=== PATIENT | female | born 1945 | race Caucasian/White ===

== ENCOUNTER 2017-05-05 11:34 | Inpatient (IN) ==
--- NOTE | 2017-05-04 16:29 | Discharge Summary ---
<Chetna Reed E - Last Filed: 05/04/17 16:26> Date of Encounter: 05/04/17 - Discharge Diagnosis (1) Osteoarthritis of right knee Priority: Primary Status: Chronic Qualifiers: Osteoarthritis type: unspecified Qualified Code(s): M17.11 - Unilateral primary osteoarthritis, right knee (2) HTN (hypertension) Priority: Secondary Status: Chronic Qualifiers: Hypertension type: unspecified Qualified Code(s): I10 - Essential (primary ) hypertension (3) HLD (hyperlipidemia) Priority: Secondary Status: Chronic Qualifiers: Hyperlipidemia type: unspecified Qualified Code(s): E78.5 - Hyperlipidemia , unspecified - Discharge Medications Home Medications: Aspirin Enteric Coated [Aspirin EC] 325 mg PO DAILY 21 Days #21 tablet. [Rx] OxyCODONE Immed Rel [Roxicodone 5 MG] 5 mg PO Q6HR PRN 7 Days #28 tablet [Rx] Aspirin [Lo-Dose Aspirin EC] 81 mg PO DAILY 05/05/17 [History] Celecoxib [Celebrex] 200 mg PO DAILY 05/05/17 [History] Cholecalciferol (D-3) [Vitamin D] 1,000 unit PO DAILY 05/05/17 [History] Lifitegrast [Xiidra] 1 drop OP BID 05/05/17 [History] Lisinopril [Zestril] 5 mg PO HS 05/05/17 [History] Lisinopril [Zestril] 10 mg PO HS 05/05/17 [History] Lisinopril [Zestril] 20 mg PO QAM 05/05/17 [History] Magnesium l-Lactate [Mag-Tab Sr] 84 mg PO DAILY 05/05/17 [History] Nortriptyline [Pamelor] 25 mg PO HS 05/05/17 [History] Pantoprazole Sodium [Protonix] 40 mg PO DAILY 05/05/17 [History] Potassium Gluconate 99 mg PO DAILY 05/05/17 [History] Simvastatin [Zocor] 20 mg PO HS 05/05/17 [History] Tramadol HCl [Ultram] 50 mg PO TID PRN 05/05/17 [History] Zolpidem [Ambien] 5 mg PO HS PRN 05/05/17 [History] amLODIPine [Norvasc] 5 mg PO DAILY #0 05/05/17 [Rx] Allergies/Adverse Reactions: 3 Allergy/AdvReac Type Severity Reaction Status Date / Time No Known Allergies Allergy Verified 11/04/16 12:39 Primary care physician: Kala Marquez - Patient Status Disposition: Home, Self-Care Condition: Good - Discharge Instructions Follow Up With: Chetna Reed PAC [Physician Board Turner] - 05/15/17 9:45 am (& also, May 21, 2017 at 10:15 AM) Jack Milner MD [Partnered Physician] - 06/04/17 5:15 pm Additional Instructions: Discharge Instructions: Total Knee Replacement Please call [facility] ([phone]), your Primary Care Physician, or report to the Emergency Room if you have any of the following symptoms: Nausea, vomiting, fever greater that 101.5, swelling, chest pain, shortness of breath, increased pain/redness/drainage/odor for your incision site, numbness/ tingling, or any other concerning symptoms. ACTIVITY: Weight-bearing as tolerated. You may progress off support (crutches or walker) as tolerated. MEDICATIONS: Upon discharge resume your home medications. Take all the medications as prescribed. Take a stool softener if taking narcotic pain medications. Stool softeners are only effective if you drink enough fluids. Drink 6-8 glass of water or fluids a day, unless this is not allowed for another health problem. Despite using stool softeners, if you haven't had a bowel movement in 3 days, please switch to a gentle laxative. Gentle laxatives are sold over the counter. You should have a bowel movement within 24 hours, if not call the office. You will be discharged from the hospital with a prescription for pain medication. You are encouraged to decrease the use of narcotic pain medication as tolerated. Should you require a refill, please call the office. [facility] prescribes narcotic pain medication for only 4-6 weeks after surgery. If you require pain medication beyond this time period, you may be referred to your Primary Care Physician or to the Pain Clinic for further evaluation. Plan ahead for refills on pain medication as many narcotics either need to be picked up at the office or mailed. It is best to call 48-72 hours in advance of needing a prescription refill so you don't run out of medication. To help control the post-operative pain, you may take Tylenol as prescribed on the bottle in addition to the pain medication. ANTICOAGULATION (blood thinners): Continue your Aspirin, Lovenox or Coumadin as prescribed to help prevent a blood clot in the leg or in the lungs. Common symptoms of blood clot in the legs include: localized pain, swelling, calf tenderness, redness or discoloration of the skin. Blood clot in the lung symptoms include: shortness of breath, rapid pulse, sweating, and chest pain that worsens with deep breathing, coughing up blood, lightheadedness, feelings of anxiety. If you experience any of these symptoms notify your physician immediately, go to the emergency room, or if having trouble breathing, call 911. WOUND CARE: Leave the dressing on for 7 to 10 days. You may change the dressing if it becomes saturated greater than 50%. Do not get the dressing wet at anytime. Wash your hands with antibacterial soap, rinse and dry prior to any wound care. If you have santos the visiting nurse or rehab facility can remove the stapes 10-14 days after surgery and place steri-strips across the wound. Leave the steri-strips in place until they fall off on their won. You may let water from the shower run on top of the steri-strips. If you do not have a visiting nurse or rehab facility, you will need to return to the office at 10-14 days for the santos to be removed. If you have itching or redness around the dressing call the office. FOLLOW-UP: Please follow up with your surgeon in the orthopedic clinic in 4 weeks from the day of surgery. If you have santos that need to be removed, you will need to come back to the office in 10-14 days from the day of surgery. - Hospital Course Hospital course: Ms. Marquez is a 71 year old female - Time Spent with Patient Total time spent providing and/or coordinating discharge services: <Jack Milner - Last Filed: 05/08/17 07:49> Date of Encounter: 05/08/17 Time of Encounter: 07:48 - Discharge Diagnosis (1) Status post total right knee replacement Priority: Primary Status: Acute (2) HTN (hypertension) Priority: Secondary Status: Chronic Qualifiers: Hypertension type: unspecified Qualified Code(s): I10 - Essential (primary ) hypertension (3) HLD (hyperlipidemia) Priority: Secondary Status: Chronic Qualifiers: Hyperlipidemia type: unspecified Qualified Code(s): E78.5 - Hyperlipidemia , unspecified (4) Osteoarthritis of right knee Priority: Primary Status: Chronic Qualifiers: Osteoarthritis type: unspecified Qualified Code(s): M17.11 - Unilateral primary osteoarthritis, right knee Primary care physician: Kala Marquez - Patient Status Functional capacity at discharge: uses cane/walker Overall status at discharge: patient is progressing back to baseline - Hospital Course Hospital course: Ms. Marquez is a 71 year old female Status post right total knee replacement The patient had an uneventful postoperative course. They received antibiotics and physical therapy and were discharged in stable condition. There will follow -up in the office in 2 weeks. - Time Spent with Patient Total time spent providing and/or coordinating discharge services:
--- NOTE | 2017-05-05 12:34 | History & Physical Report ---
Date of Encounter: 05/05/17 Time of Encounter: 12:34 24 Hour HP Update - Instructions Instructions: If the History and Physical is less than 30 days old and was completed prior to A.M. admission and or procedure and has NOT been updated on calendar day of procedure please complete this update prior to performing procedure. - Update Patient reports changes in Medical Condition: No Changes in examination, assessment, or condition: No Changes in Medication: No Preop tests/diagnostics Reviewed: Yes Surgery Remains Indicated: Yes Consent for Planned Operative Procedure(s) Verified: Yes - Pre-Operative Checklist Preoperative Checklist Indicated: No Prophylactic Antibiotic Ordered: Yes Is VTE Prophylaxis Indicated?: Yes
[2017-05-05] MEDS ORDERED: CeFAZolin Syr 2,000MG/20 ML 2,000 MG/20 ML SYRINGE IVPB ONE (12:36)
[2017-05-05] MEDS ORDERED: Famotidine 20 MG/2 ML VIAL IVP ONE (12:40)
[2017-05-05] MEDS ORDERED: Pregabalin 75 MG CAPSULE PO ONE (12:41)
[2017-05-05] MEDS ORDERED: Acetaminophen IV 1,000 MG/100 ML INFUS..BTL IVPB ONE (12:41)
[2017-05-05] MEDS ORDERED: Plasma-Lyte A (PH 7.4) 1,000 ML IVC SCH (12:45)
--- NOTE | 2017-05-05 12:46 | Anesthesia Evaluation PreOp ---
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 [Rx] OxyCODONE Immed Rel [Roxicodone 5 MG] 5 mg PO Q6HR PRN 7 Days #28 tablet [Rx] 3 Allergy/AdvReac Type Severity Reaction Status Date / Time No Known Allergies Allergy Verified 11/04/16 12:39 - Meds/Allergy Pre-op Review Medications Reviewed: Yes Allergies Reviewed: Yes Beta Blockers on Current Med List: No Anesthesia Results - Labs Laboratory Tests 04/22/17 04/22/17 04/22/17 11:40 11:40 11:40 Hgb 15.1 Hct 45.7 H Plt Count 271 PT 11.1 INR 1.0 APTT 27.1 Sodium 137 Potassium 3.9 BUN 20 Creatinine 0.97 - Imaging EKG: report reviewed (SR) Additional studies: LVEF 70% Anesthesia Exam O2 Sat Height 1.65 m Weight 80.739 kg O2 Sat by Pulse Oximetry 97 Vital Signs Temp Pulse Resp BP Pulse Ox 98.1 F 101 18 152/83 97 05/05/17 12:22 05/05/17 12:22 05/05/17 12:22 05/05/17 12:22 05/05/17 12:22 Height: 5'5 Weight: 178 lbs NPO (# of Hours): MN Pain Scale: 0 - HEENT Pupil (Motor): Pupils equal, EOMI Mallampati: II Teeth: Normal Oral Opening: Greater than 3 - METER REPAIRER HELPER LOC: Oriented METER REPAIRER HELPER Motor: Normal RUE, Normal LUE, Normal RLE, Normal LLE, Normal Face METER REPAIRER HELPER Sensory: Normal: RUE, LUE, RLE, LLE, Face - Cardiac Rhythm: Regular Murmur: None JVD: No Carotid Bruit: No - Pulmonary Breath Sounds: bilateral Clear Respiratory Effort: Symmetrical Anesthesia Assess/Plan ASA Score: 2 Modified Isaiah Scale for Level of Consciousness: Cooperative, oriented, and tranquil Anesthetic Plan: Regional, MAC Monitoring Plan: Standard Monitors Recovery Plan: PACU (Discussed SAB with Adductor Canal Block MAC, possible GA, agrees to proceed)
[2017-05-05] MEDS ORDERED: Lidocaine -MPF 2% 2 ML VIAL ONE (13:13)
[2017-05-05] MEDS ORDERED: *HR* FentaNYL (PF) 100 MCG/2 ML VIAL ONE (13:13)
[2017-05-05] MEDS ORDERED: EPHEDrine 50 MG/ML VIAL ONE (13:13)
[2017-05-05] MEDS ORDERED: Propofol 500 MG/50 ML INFUS..BTL ONE (13:13)
[2017-05-05] MEDS ORDERED: *HR* Midazolam HCl 2 MG/2 ML VIAL ONE (13:14)
[2017-05-05] MEDS ORDERED: Ethanol\\Acetic Acid\\Na Ace\\Ben 1,000 ML IRRIG.SOLN IR ONE (14:30)
[2017-05-05] MEDS ORDERED: *HR* Ropivacaine/PF 0.5% 20 ML VIAL ONE (14:31)
--- NOTE | 2017-05-05 15:11 | Anesthesia Procedures ---
Date of Encounter: 05/05/17 Time of Encounter: 14:00 Procedures: Anesthesia - Epidural/Spinal Patient ID/Chart reviewed: Yes Patient examined: Yes Consent Obtained: Yes Supplemental Oxygen: Nasal Cannula (2) Sedation: Versed (mg): 2 Site Prep: Aseptic Technique, Sterile prep and drape, Povidone-Iodine 1% Patient position: upright Local Anesthetic: Lidocaine 1% Interspace Used: L4-L5 Blood: No CSF: Yes Paresthesia: No Spinal Needle Gauge: 25 Spinal Dose: 20 mg Marcaine isobaric Procedure: Patient sitting, midline L3-4 Patient tolerated procedure well Vitals + FHT's: Vital Signs/O2 Sat/Glucose, Most Current Temp Pulse Resp BP Pulse Ox 05/05/17 14:44 104 148/79 97 05/05/17 14:37 112 159/86 97 05/05/17 12:47 98.1 F 101 18 152/83 97 05/05/17 12:22 98.1 F 101 18 152/83 97
[2017-05-05] MEDS ORDERED: MORPHINE SUL Oral CONC 10 MG/0.5 ML ORAL.SYG SL PRN (15:32)
--- NOTE | 2017-05-05 15:42 | Orthopedic Operative Note ---
Date of procedure: 05/05/17 Pre-op diagnosis: Right knee arthritis Post-op diagnosis: same Procedure: Procedure: Right robotic-assisted Total knee replacement Estimated blood loss: 200 cc Hardware: Metal and polyethylene replacement. [place] Femur: 3 Tibia: 3 PS insert: 13 Patella: 36 Exam Under anesthesia: Hyperextension 3 degrees 4 degrees varus as calculated by the robot full flexion and no instability Procedural Notes: Grade 4 arthritic changes medial compartment grade 3 patellofemoral joint. Operative procedure: The patient was brought to the operating room and placed on the operating room table. After general anesthesia was administered the operative knee was examined. Findings were noted in the exam under anesthesia. The operative extremity was prepped and draped in sterile surgical fashion. The patient received IV antibiotics prior to skin incision. A standard midline incision was made centered over the patella. The incision was made through the skin and subcutaneous tissue. A medial parapatellar tendon approach was performed. Care was taken to preserve tissue along the medial aspect of the patella. And to protect the patella tendon. The deep MCL was released off the medial tibia. The infra patella fat pad was excised. The patella was everted and cut was made at the level of the insertion of the quadriceps and patella tendon. The patella was sized to a 36 the guide was seated and the lug holes are drilled. Knee was brought into flexion. Patient noted to have grade 43 changes medial compartment and grade 3 patellofemoral joint. Steinmann pins were placed in the tibia and the femur for the tibial and femoral arrays respectively. Checkpoints were also placed in the tibia and the femur for calculation purposes. The knee including the femur and the tibial registered. Osteophytes , ACL and PCL were excised at this point. Extension and flexion were assessed with a valgus stress components were adjusted on the computer to balance the knee. Femoral cuts were made first with robotic assistance, these included the anterior cut posterior cuts chamfer cuts. Tibial cut was then performed with robotic assistance as well. Bone fragments were removed, as well as the medial and lateral meniscus. The size 3 femoral guide was seated box cut was made lug holes are drilled. The size 3 tibial tray was seated and prepared with the fin cutter. Trial reduction with the 13 PS Christie revealed extension of 0 degree and 1 degree varus and full flexion. No varus valgus instability. Trial reduction revealed excellent patella tracking. All trial components were removed all bony surfaces were irrigated. The Tibia was seated followed by the femur, The Christie size 13 was seated and secured patella. Patient had similar findings for motion and stability. The knee was closed by the PA. The knee was then irrigated out with 2 L of pulse irrigation. The extensor mechanism was closed with #2 FiberWire suture and #2 PDS suture. The subcutaneous tissue was then irrigated and closed deep with #1 PDS suture superficially with 0 PDS suture and skin was closed with zip tie The patient was then placed in a sterile dressing and a postoperative brace extubated and transferred to recovery room in stable condition. Anesthesia: MAC, spinal Surgeon: Jack Milner Was there an costumer assistant present: No Estimated blood loss (cc): 200 Condition: stable Disposition: PACU
[2017-05-05] MEDS ORDERED: CeFAZolin Premix DUPLEX 2,000 MG/50 ML BAG IVPB SCH (16:55)
[2017-05-05] MEDS ORDERED: MOM Conc 10 ML UD.LIQ PO PRN (16:55)
[2017-05-05] MEDS ORDERED: Naloxone 0.4 MG/ML INJ IVP PRN (16:55)
[2017-05-05] MEDS ORDERED: Temazepam 15 MG CAPSULE PO PRN (16:55)
[2017-05-05] MEDS ORDERED: Sennosides 8.6 MG TABLET PO PRN (16:55)
[2017-05-05] MEDS ORDERED: Ondansetron 4 MG/2 ML VIAL IVP PRN (16:55)
--- NOTE | 2017-05-05 17:00 | Anesthesia Evaluation Post Op ---
Date of Encounter: 05/05/17 Time of Encounter: 16:45 - Vital Signs Vital Signs: Vital Signs/O2 Sat/Glucose, Most Current Temp Pulse Resp BP Pulse Ox 05/05/17 16:52 93 16 136/73 95 05/05/17 16:42 99.0 F 93 16 138/66 96 05/05/17 16:32 87 16 135/84 96 05/05/17 16:22 87 16 132/74 96 05/05/17 16:12 98.5 F 91 16 128/73 96 05/05/17 14:44 104 148/79 97 05/05/17 14:37 112 159/86 97 - Lungs Lungs: Clear Ascult./Percussion - Airway Airway: Non-obstructed - Cardiovascular Regular Rate - Mental Status Mental Status: Alert & Oriented, Answers Appropriately - Pain Pain Scale: 0 - Nausea Vomiting Nausea Vomiting: Not Present - Hydration Hydration: Ice chips - Discharge PostOp Status: Transfer Patient to floor
[2017-05-05 17:20] LABS: Hematocrit 42.3 % (35.3-44.9); Hemoglobin 14.1 g/dL (11.5-15.4)
[2017-05-05] MEDS ORDERED: *HR* Enoxaparin 30 MG/0.3 ML SYRINGE SQ SCH (18:00)
[2017-05-05] MEDS: *HR* Enoxaparin 30 MG/0.3 ML SYRINGE SQ SCH (18:33)
[2017-05-05] MEDS: Ringers Solution, Lactated 1,000 ML IVC SCH (20:10)
[2017-05-05] MEDS: CeFAZolin Premix DUPLEX 2,000 MG/50 ML BAG IVPB SCH (22:53)
[2017-05-06] MEDS ORDERED: *HR* OxyCODONE Immed Rel 5 MG TABLET PO PRN (03:35)
[2017-05-06] MEDS: *HR* OxyCODONE Immed Rel 5 MG TABLET PO PRN ×4 (03:43→20:21)
[2017-05-06 05:07] LABS: Hematocrit 41.1 % (35.3-44.9); Hemoglobin 13.5 g/dL (11.5-15.4)
[2017-05-06 05:20] LABS: BUN/Creatinine Ratio 22 (6-26); Blood Urea Nitrogen 17 mg/dL (8-23); Calcium 8.9 mg/dL (8.6-10.3); Carbon Dioxide 25 mEq/L (23-29); Chloride 104 mEq/L (98-107); Glucose 156 mg/dL (70-105); Osmolality,Calculated 291 (280-300); Potassium 4.1 mEq/L (3.5-5.1); Sodium 138 mEq/L (136-145); eGFR For African Americans > 60 (> 60); eGFR For Non-African Americans > 60 (> 60)
[2017-05-06] MEDS: Ringers Solution, Lactated 1,000 ML IVC SCH (05:38)
[2017-05-06] MEDS: *HR* Enoxaparin 30 MG/0.3 ML SYRINGE SQ SCH ×2 (05:53→17:54)
[2017-05-06] MEDS: CeFAZolin Premix DUPLEX 2,000 MG/50 ML BAG IVPB SCH (05:56)
--- NOTE | 2017-05-06 06:47 | Orthopedics Progress Note ---
Date of Encounter: 05/06/17 Time of Encounter: 06:47 - Assessment and Plan (1) Status post total right knee replacement Current Visit: Yes Status: Acute (2) HTN (hypertension) Current Visit: No Status: Chronic Qualifiers: Hypertension type: unspecified Qualified Code(s): I10 - Essential (primary ) hypertension (3) HLD (hyperlipidemia) Current Visit: No Status: Chronic Qualifiers: Hyperlipidemia type: unspecified Qualified Code(s): E78.5 - Hyperlipidemia , unspecified (4) Osteoarthritis of right knee Current Visit: No Status: Chronic Qualifiers: Osteoarthritis type: unspecified Qualified Code(s): M17.11 - Unilateral primary osteoarthritis, right knee Subjective Interval history: Patient was seen this morning doing well without complaints. Afebrile vital signs stable. Operative extremity: Neurovascularly intact Dressing clean dry and intact Calves nontender Assessment and plan: Continue with postoperative care Hematocrit 41 Objective Vital signs: Vital Signs Temp Pulse Resp BP Pulse Ox 05/06/17 06:37 98.5 F 90 15 114/71 94 05/06/17 03:46 97.6 F 90 16 121/70 98 05/05/17 23:37 97.8 F 97 16 122/73 98 05/05/17 18:10 97.6 F 95 16 131/71 99 05/05/17 17:40 97.6 F 102 15 124/69 98 05/05/17 17:05 96 05/05/17 16:52 93 16 136/73 95 05/05/17 16:42 99.0 F 93 16 138/66 96 05/05/17 16:32 87 16 135/84 96 05/05/17 16:22 87 16 132/74 96 05/05/17 16:12 98.5 F 91 16 128/73 96 05/05/17 14:44 104 148/79 97 05/05/17 14:37 112 159/86 97 05/05/17 12:47 98.1 F 101 18 152/83 97 05/05/17 12:22 98.1 F 101 18 152/83 97 Intake and Output 05/05/17 05/05/17 05/06/17 15:59 23:59 07:59 Intake Total 50 / 50 589 / 589 Output Total 350 / 350 350 / 350 Balance -300 / -300 239 / 239 Intake: IV Fluids 20 / 20 50 / 50 589 / 589 Lactated Ringers 1,000 ML @ 75 589 / 589 mls/hr IVC .[id number] JJ Rx#: [id number] Ancef Premix DUPLEX 2,000 mg In 50 / 50 50 ml @ 100 mls/hr IVPB Q8H JJ Rx#:[id number] Ancef Syringe 2,000 MG/20 ML 2, 20 / 20 000 mg In 20 ml @ 200 mls/hr IVPB PREOP ONE Rx#:[id number] Output: Urine 150 / 150 350 / 350 Estimated Blood Loss 200 / 200 Other: # Voids 1 1 Weight 80.739 kg - Labs CBC & BMP: 05/06/17 03:57 05/06/17 03:57 Labs: Abnormal lab results Glucose 156 mg/dL (70-105) H 05/06/17 03:57 - VTE Documentation of Mechanical Device: Venous foot pump, device Consult Discharge Plan - Plan Referrals: Kala Marquez [Primary Care Provider] -
[2017-05-06] MEDS: Lisinopril 20 MG TABLET PO SCH (08:38)
[2017-05-06] MEDS: amLODIPine 5 MG TABLET PO SCH (17:54)
[2017-05-06] MEDS: Celecoxib 200 MG CAPSULE PO SCH (17:54)
[2017-05-06] MEDS: LIFITEGRAST OPTH OP SCH (20:22)
[2017-05-07] MEDS: *HR* OxyCODONE Immed Rel 5 MG TABLET PO PRN ×5 (01:31→20:00)
[2017-05-07 05:16] LABS: Hematocrit 36.9 % (35.3-44.9); Hemoglobin 12.1 g/dL (11.5-15.4)
[2017-05-07] MEDS: *HR* Enoxaparin 30 MG/0.3 ML SYRINGE SQ SCH ×2 (05:39→17:48)
[2017-05-07 05:40] LABS: BUN/Creatinine Ratio 32 (6-26); Blood Urea Nitrogen 22 mg/dL (8-23); Calcium 8.8 mg/dL (8.6-10.3); Carbon Dioxide 25 mEq/L (23-29); Chloride 103 mEq/L (98-107); Glucose 126 mg/dL (70-105); Osmolality,Calculated 285 (280-300); Sodium 135 mEq/L (136-145); eGFR For African Americans > 60 (> 60); eGFR For Non-African Americans > 60 (> 60)
--- NOTE | 2017-05-07 07:56 | Orthopedics Progress Note ---
Date of Encounter: 05/07/17 Time of Encounter: 07:56 - Assessment and Plan (1) Status post total right knee replacement Current Visit: Yes Status: Acute (2) HTN (hypertension) Current Visit: No Status: Chronic Qualifiers: Hypertension type: unspecified Qualified Code(s): I10 - Essential (primary ) hypertension (3) HLD (hyperlipidemia) Current Visit: No Status: Chronic Qualifiers: Hyperlipidemia type: unspecified Qualified Code(s): E78.5 - Hyperlipidemia , unspecified (4) Osteoarthritis of right knee Current Visit: No Status: Chronic Qualifiers: Osteoarthritis type: unspecified Qualified Code(s): M17.11 - Unilateral primary osteoarthritis, right knee Subjective Interval history: Patient was seen this morning doing well without complaints. Afebrile vital signs stable. Operative extremity: Neurovascularly intact Dressing clean dry and intact Calves nontender Assessment and plan: Continue with postoperative care Hematocrit 36 Objective Vital signs: Vital Signs Temp Pulse Resp BP Pulse Ox 05/07/17 06:58 98.4 F 98 16 123/71 95 05/07/17 03:35 98.6 F 100 16 128/66 94 05/06/17 22:50 98.4 F 96 16 135/68 97 05/06/17 18:44 98.4 F 99 16 150/78 95 05/06/17 15:21 97.8 F 92 14 118/77 97 05/06/17 10:08 97.5 F L 111 14 135/83 97 Intake and Output 05/06/17 05/06/17 05/07/17 15:59 23:59 07:59 Intake Total 840 / 840 590 / 590 0 / 0 Output Total 0 / 0 500 / 500 Balance 840 / 840 590 / 590 -500 / -500 Intake: Oral 840 / 840 590 / 590 0 / 0 Output: Urine 0 / 0 500 / 500 Other: Meal Lunch Dinner Percent of Meal Consumed 70% 70% # Voids 1 - Labs CBC & BMP: 05/07/17 04:34 05/07/17 04:34 Labs: Abnormal lab results Sodium 135 mEq/L (136-145) L 05/07/17 04:34 BUN/Creatinine Ratio 32 (6-26) H 05/07/17 04:34 Glucose 126 mg/dL (70-105) H 02/07/18 04:34 - VTE Documentation of Mechanical Device: Venous foot pump, device Consult Discharge Plan - Plan Referrals: Kala Marquez [Primary Care Provider] -
[2017-05-07] MEDS: Lisinopril 20 MG TABLET PO SCH (09:56)
[2017-05-07] MEDS: amLODIPine 5 MG TABLET PO SCH ×2 (09:57→17:30)
[2017-05-07] MEDS: Cholecalciferol (D-3) 1,000 UNIT TABLET PO SCH (09:57)
[2017-05-07] MEDS: Celecoxib 200 MG CAPSULE PO SCH (09:57)
[2017-05-07] MEDS: LIFITEGRAST OPTH OP SCH ×2 (09:58→20:01)
[2017-05-07] MEDS: POTASSIUM GLUCONATE 99 MG PO SCH (09:58)
[2017-05-07] MEDS: Magnesium L-Lactate [Mag-Tab Sr] 84 MG PO SCH (09:58)
[2017-05-07] MEDS ORDERED: Acetaminophen 325 MG TABLET PO PRN (14:29)
--- NOTE | 2017-05-07 16:14 | Event Note ---
Date of Encounter: 05/07/17 Time of Encounter: 12:15 PCR- POD# 2 Right robotic-assisted Total knee replacement 05/05/17 PCR - Patient seen at bedside. She is having moderate nausea all morning, no vomiting. will add zofran Pain control: tolerable currently but states there was increased pain this morning after therapy. will add tylenol Participating in PT but she states she had difficulty standing today and had to have 2 people assist her to BSC. She is concerned about original plan for DC home, will see how therapy session goes this afternoon and can change to ECF if necessary All questions and concerns addressed. Educated on use of incentive spirometer, ambulation, and hydration. Patient educated on post-operative restrictions and care. Addressed: see above. D/C plan:. original plan of home with outpatient therapy but may change depending on therapy session this morning
[2017-05-07] MEDS: traMADol 50 MG TABLET PO PRN (17:30)
[2017-05-08] MEDS: *HR* OxyCODONE Immed Rel 5 MG TABLET PO PRN ×2 (02:55→10:07)
[2017-05-08] MEDS: *HR* Enoxaparin 30 MG/0.3 ML SYRINGE SQ SCH (05:11)
[2017-05-08 07:21] VITALS: BP 118/67
--- NOTE | 2017-05-08 07:50 | Orthopedics Progress Note ---
Date of Encounter: 05/08/17 Time of Encounter: 07:49 - Assessment and Plan (1) Status post total right knee replacement Current Visit: Yes Status: Acute (2) HTN (hypertension) Current Visit: No Status: Chronic Qualifiers: Hypertension type: unspecified Qualified Code(s): I10 - Essential (primary ) hypertension (3) HLD (hyperlipidemia) Current Visit: No Status: Chronic Qualifiers: Hyperlipidemia type: unspecified Qualified Code(s): E78.5 - Hyperlipidemia , unspecified (4) Osteoarthritis of right knee Current Visit: No Status: Chronic Qualifiers: Osteoarthritis type: unspecified Qualified Code(s): M17.11 - Unilateral primary osteoarthritis, right knee Subjective Interval history: Patient was seen this morning doing well without complaints. Afebrile vital signs stable. Operative extremity: Neurovascularly intact Dressing clean dry and intact Calves nontender Assessment and plan: Continue with postoperative care Hematocrit 36 discharged today Objective Vital signs: Vital Signs Temp Pulse Resp BP Pulse Ox 05/08/17 06:40 98.3 F 94 16 118/67 96 05/08/17 03:09 98.1 F 97 16 118/61 95 05/07/17 23:38 98.8 F 108 16 110/63 93 05/07/17 19:33 98.2 F 114 16 113/65 95 05/07/17 14:50 97.8 F 108 16 144/68 96 05/07/17 12:05 97.8 F 104 16 142/71 96 05/07/17 09:55 116 146/81 Intake and Output 05/07/17 05/07/17 05/08/17 15:59 23:59 07:59 Intake Total 350 / 350 100 / 100 50 / 50 Output Total 450 / 450 0 / 0 125 / 125 Balance -100 / -100 100 / 100 -75 / -75 Intake: Oral 350 / 350 100 / 100 50 / 50 Output: Urine 450 / 450 0 / 0 125 / 125 Other: Meal Lunch Percent of Meal Consumed 80% # Voids 1 1 - Labs CBC & BMP: 05/07/17 04:34 05/07/17 04:34 Labs: Abnormal lab results Sodium 135 mEq/L (136-145) L 05/07/17 04:34 BUN/Creatinine Ratio 32 (6-26) H 05/07/17 04:34 Glucose 126 mg/dL (70-105) H 05/07/17 04:34 - VTE Documentation of Mechanical Device: Venous foot pump, device Consult Discharge Plan - Plan Additional Instructions: Discharge Instructions: Total Knee Replacement Please call [facility] ([phone]), your Primary Care Physician, or report to the Emergency Room if you have any of the following symptoms: Nausea, vomiting, fever greater that 101.5, swelling, chest pain, shortness of breath, increased pain/redness/drainage/odor for your incision site, numbness/ tingling, or any other concerning symptoms. ACTIVITY: Weight-bearing as tolerated. You may progress off support (crutches or walker) as tolerated. MEDICATIONS: Upon discharge resume your home medications. Take all the medications as prescribed. Take a stool softener if taking narcotic pain medications. Stool softeners are only effective if you drink enough fluids. Drink 6-8 glass of water or fluids a day, unless this is not allowed for another health problem. Despite using stool softeners, if you haven't had a bowel movement in 3 days, please switch to a gentle laxative. Gentle laxatives are sold over the counter. You should have a bowel movement within 24 hours, if not call the office. You will be discharged from the hospital with a prescription for pain medication. You are encouraged to decrease the use of narcotic pain medication as tolerated. Should you require a refill, please call the office. [facility] prescribes narcotic pain medication for only 4-6 weeks after surgery. If you require pain medication beyond this time period, you may be referred to your Primary Care Physician or to the Pain Clinic for further evaluation. Plan ahead for refills on pain medication as many narcotics either need to be picked up at the office or mailed. It is best to call 48-72 hours in advance of needing a prescription refill so you don't run out of medication. To help control the post-operative pain, you may take Tylenol as prescribed on the bottle in addition to the pain medication. ANTICOAGULATION (blood thinners): Continue your Aspirin, Lovenox or Coumadin as prescribed to help prevent a blood clot in the leg or in the lungs. Common symptoms of blood clot in the legs include: localized pain, swelling, calf tenderness, redness or discoloration of the skin. Blood clot in the lung symptoms include: shortness of breath, rapid pulse, sweating, and chest pain that worsens with deep breathing, coughing up blood, lightheadedness, feelings of anxiety. If you experience any of these symptoms notify your physician immediately, go to the emergency room, or if having trouble breathing, call 911. WOUND CARE: Leave the dressing on for 7 to 10 days. You may change the dressing if it becomes saturated greater than 50%. Do not get the dressing wet at anytime. Wash your hands with antibacterial soap, rinse and dry prior to any wound care. If you have santos the visiting nurse or rehab facility can remove the stapes 10-14 days after surgery and place steri-strips across the wound. Leave the steri-strips in place until they fall off on their won. You may let water from the shower run on top of the steri-strips. If you do not have a visiting nurse or rehab facility, you will need to return to the office at 10-14 days for the santos to be removed. If you have itching or redness around the dressing call the office. FOLLOW-UP: Please follow up with your surgeon in the orthopedic clinic in 4 weeks from the day of surgery. If you have santos that need to be removed, you will need to come back to the office in 10-14 days from the day of surgery. Referrals: Chetna Reed PAC [Physician [employer] Recovery Worker] - 05/15/17 9:45 am (& also, May 21, 2017 at 10:15 AM) Jack Milner MD [Partnered Physician] - 06/04/17 5:15 pm
[2017-05-08] MEDS: Celecoxib 200 MG CAPSULE PO SCH (09:01)
[2017-05-08] MEDS: Cholecalciferol (D-3) 1,000 UNIT TABLET PO SCH (09:01)
[2017-05-08] MEDS: amLODIPine 5 MG TABLET PO SCH (09:01)
[2017-05-08] MEDS: Lisinopril 20 MG TABLET PO SCH (09:01)
[2017-05-08] MEDS: traMADol 50 MG TABLET PO PRN (09:01)
[2017-05-08] MEDS: POTASSIUM GLUCONATE 99 MG PO SCH (09:02)
[2017-05-08] MEDS: Magnesium L-Lactate [Mag-Tab Sr] 84 MG PO SCH (09:02)
[2017-05-08] MEDS: LIFITEGRAST OPTH OP SCH (09:03)
== END 2017-05-08 10:15 | disposition home or self-care (01) | DRG 470 ==
LOC: SAMDAY 11:34 → 3NENU 17:14
PROVIDERS: ADMIT Orthopaedic Surgery; ATTEND Orthopaedic Surgery